=== PATIENT | female | born 1970 | race Caucasian/White ===

== ENCOUNTER → 2018-11-20 | Outpatient (CLI) | payer OTHER ==
--- NOTE | 2018-11-20 09:01 | RAD ---
Indication: Right hip pain status post fall 3 weeks ago TECHNIQUE: AP pelvis and 2 views of the right hip COMPARISON: None Findings/ impression: No acute fracture or dislocation. Bilateral hip joints are symmetric. Electronically signed by: Amandeep Lawton DO (11/20/2018 8:57 AM) [facility]
== END | disposition home or self-care (01) ==
LOC: PMG 08:32
PROVIDERS: ATTEND Registered Nurse
DX: M46.1 Sacroiliitis, not elsewhere classified (principal); M25.551 Pain in right hip; W19.XXXA Unspecified fall, initial encounter; Y93.89 Activity, other specified; Y92.89 Other specified places as the place of occurrence of the external cause; Y99.8 Other external cause status
CPT/HCPCS: 73502

== ENCOUNTER → 2019-01-01 | Outpatient (CLI) | payer OTHER ==
--- NOTE | 2019-01-01 13:28 | RAD ---
EXAM: Lumbar spine, 3 views. HISTORY: Pain. COMPARISON: None. FINDINGS: 3 views of the lumbar spine are obtained. There is no listhesis. The vertebral bodies are normal in height. The disc spaces are preserved. IMPRESSION: No acute osseous finding. Electronically signed by: Jacquelin Do MD (01/01/2019 1:25 PM) [facility]
== END | disposition home or self-care (01) ==
LOC: PMG 10:44
PROVIDERS: ATTEND Registered Nurse
DX: M54.5 Low back pain (principal)
CPT/HCPCS: 72100